=== PATIENT | female | born 1970 | race Caucasian/White ===

== ENCOUNTER 2021-05-23 13:25 | Emergency (ER) | payer BC, SELFPAY ==
--- NOTE | ~2021-05-23 | XR_ITS ---
EXAMINATION: XR ankle RT min 3V DATE: 05/23/2021 13:50 INDICATION: Twisting right ankle injury with bruising and swelling. TECHNIQUE: Anteroposterior, oblique, mortise, and lateral views of the right ankle were obtained. COMPARISON: None. FINDINGS: Nondisplaced transverse fracture of the lateral malleolus extending to the medial cortex about 6 mm b elow level of the tibiotalar joint line. No other fractures identified. Alignment remains essentially anatomic with congruent ankle mortise. Joint spaces are normal. No right ankle joint effusion. Small Achilles and plantar calcaneal spurs. Soft tissue swelling about the ankle, both medially and latera lly and extending over the dorsum of the foot. IMPRESSION: 1. Nondisplaced transverse fracture of the lateral malleolus. Reviewed, dictated and finalized at location A.
[2021-05-23 13:37] VITALS: BP 142/81; PULSE 83; RESP 16; TEMP 36.7; O2SAT 100
--- NOTE | 2021-05-23 13:58 | ED.LOWEXIN ---
HPI - Extremity Injury (Lower) General Chief Complaint: Extremity Injury, Lower Stated Complaint: Right Ankle Pain Time Seen by Provider: 05/23/21 14:01 Source: patient and RN notes reviewed Mode of arrival: ambulatory Limitations: no limitations History of Present Illness HPI Narrative: 50-year-old female presents concern for right ankle pain. Reports 1 week ago she rolled her ankle while running. Reports swelling, bruising, pain to the lateral ankle. Reports she has been using ice and ibuprofen. Reports pain is not improving, reports swelling is slightly improved from original injury. She denies decreased strength, sensation, range of motion. Denies open skin. 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 SKIN: Denies redness, warmth, lacerations, abrasions MUSCULOSKELETAL: Reports right ankle pain, swelling, bruising NEUROLOGIC: Denies numbness, weakness All systems reviewed & are unremarkable except as noted in HPI and below PMFSH Comments At time of signature, agree with nursing past medical, surgical, social and family history. There is no relevant family history pertinent to the presenting complaint Exam Narrative: GENERAL: Well-appearing, well-nourished, and in no acute distress. HEAD: Normocephalic, atraumatic. EYES: PERRLA, conjunctivae clear NECK: Supple. CHEST: Speaks in full sentences. No respiratory distress. HEART: Regular rate and rhythm. Normal and equal peripheral pulses. EXTREMITIES: Right ankle has normal strength and sensation, normal range of motion. Moderate ankle and foot edema or ecchymosis. Normal sensation with sensitivity to light touch and pain. Lateral tenderness. No open wounds, no skin tenting, no devitalized tissue or atrophy, no trophic changes, no obvious deformity, alignment normal, nearby joints and structures intact. Distal pulses palpable and equal bilaterally, skin warm, dry, pink. Capillary refill less than 3 seconds. SKIN: Warm, dry, no rash. NEURO: Alert and oriented x3. PSYCH: Normal mood and affect Course Course Emergency Course: Patient is aware of diagnosis, understands and agrees to treatment plan. Anticipatory guidance given. Patient agrees to follow-up as directed and is aware of reasons to seek care at the emergency department. Portions of this record may have been created with voice recognition software Vital Signs Vital signs: Vital Signs Temperature 98.1 F 05/23/21 13:37 Pulse Rate 83 05/23/21 13:37 Respiratory Rate 16 05/23/21 13:37 Blood Pressure 142/81 H 05/23/21 13:37 Pulse Oximetry 100 05/23/21 13:37 Temperature 98.1 F 05/23/21 13:37 Pulse Rate 83 05/23/21 13:37 Respiratory Rate 16 05/23/21 13:37 Blood Pressure 142/81 H 05/23/21 13:37 Pulse Oximetry 100 05/23/21 13:37 Reviewed. MDM - Extremity Injury (Lower) MDM Narrative Medical decision making narrative: Patients injury and pain is consistent with musculoskeletal etiology. No signs of neurological or vascular compromise on exam. Compartments and tissues are soft without signs of compartment syndrome. Pain is felt appropriate for further evaluation on an outpatient basis. Differential Diagnosis Differential diagnosis: Likely ankle sprain and strain and ankle fracture Imaging Data My impression: Images reviewed, interpreted by radiologist, agree, see report. Radiologist's impression: EXAMINATION: XR ankle RT min 3V DATE: 05/23/2021 13:50 INDICATION: Twisting right ankle injury with bruising and swelling. TECHNIQUE: Anteroposterior, oblique, mortise, and lateral view
== END 2021-05-23 14:45 | disposition home or self-care (01) ==
PROVIDERS: Emergency Provider Nurse Practitioner; PCP Physician Assistant
DX: S82.64XA Nondisplaced fracture of lateral malleolus of right fibula, initial encounter for closed fracture (principal); X50.9XXA Other and unspecified overexertion or strenuous movements or postures, initial encounter; Y93.02 Activity, running; K21.9 Gastro-esophageal reflux disease without esophagitis
CPT/HCPCS: 29515; 73610; 99214; G0463